=== PATIENT | female | born 1945 | race Two or more races ===

== ENCOUNTER 2021-08-16 09:20 | Day surgery (SDC) | payer OTHER | END 2021-08-16 11:52 | disposition home or self-care (01) | LOC: AMB-ENDOS 09:20 | PROVIDERS: ATTEND Internal Medicine Gastroenterology | DX: D12.3 Benign neoplasm of transverse colon (principal); I10 Essential (primary) hypertension ==

== ENCOUNTER 2022-08-16 06:34 | Day surgery (SDC) | payer OTHER | END 2022-08-16 12:05 | disposition home or self-care (01) | LOC: AMB-ENDOS 06:34 | PROVIDERS: ATTEND Internal Medicine Gastroenterology | DX: D12.2 Benign neoplasm of ascending colon (principal); K64.8 Other hemorrhoids; Z20.822 Contact with and (suspected) exposure to COVID-19 ==

== ENCOUNTER 2022-09-30 10:54 | Outpatient (CLI) | payer OTHER | END 2022-09-30 11:12 | disposition home or self-care (01) | LOC: SONOGRAMA 10:54 | PROVIDERS: ATTEND Internal Medicine Nephrology | DX: M25.562 Pain in left knee (principal); Z93.6 Other artificial openings of urinary tract status | CPT/HCPCS: 73718 ==